=== PATIENT | male | born 1985 | race Caucasian/White ===

== ENCOUNTER 2017-11-14 09:22 | Emergency (ER) | payer OTHER ==
[~2017-11-14] VITALS: Ht 170.2 cm; Wt 90.7 kg
[2017-11-14 09:40] VITALS: BP 132/85
[2017-11-14] MEDS ORDERED: LIDOCAINE WITH 8.4% SOD BICARB 3 ML DISP.SYRIN. INJ ONE (09:45)
--- NOTE | 2017-11-14 10:14 | RAD ---
Right hand, 3 views, 11/14/2017: HISTORY: Laceration No acute fracture or dislocation is identified. No radiopaque foreign body is identified in the soft tissues. IMPRESSION: No significant abnormality is detected. Electronically signed by: Jhony Quesada MD (11/14/2017 10:10 AM) [facility]
--- NOTE | 2017-11-14 10:48 | PHYS DOC ---
Past Medical History Past Medical History: Other Additional Past Medical Histor: Crohn's Past Surgical History: Other Additional Past Surgical Histo: left hip Alcohol Use: None Drug Use: None Adult General Chief Complaint Chief Complaint: LACERATION/AVULSION HPI HPI Patient is a 32-year-old right-handed male who presents to the ED today with right hand laceration, patient states he was moving a TV which broke cutting. Review of Systems Review of Systems Constitutional: Denies fever or chills [] Musculoskeletal: Denies back pain or joint pain [] Integument: Reports right hand laceration Neurologic: Denies headache, focal weakness or sensory changes [] All other systems were reviewed and found to be within normal limits, except as documented in this note. Current Medications Current Medications Current Medications Medications (Trade) Dose Ordered Sig/Alexandra Start Time Stop Time Status Last Admin Dose Admin Lidocaine/Sodium Bicarbonate (Buffered Lidocaine 1%) 3 ml 1X ONCE 11/14/17 09:45 11/14/17 09:46 DC 11/14/17 09:52 3 ML Allergies Allergies Allergies Coded Allergies Type Severity Reaction Last Updated Verified ibuprofen Adverse Reaction Mild Can not take d/t crohn's 11/14/17 Yes Physical Exam Physical Exam Constitutional: Well developed, well nourished, no acute distress, non-toxic appearance. [] Skin: right ash thenar with a laceration approximately 1 cm long. There is no obvious tendon involvement. A shunt able to flex and extend all his fingers to the right hand. Adequate radial medial and ulnar sensation to the right hand. +2 right radial pulse. Cap refill less than 2 seconds the right fingers. Back: No tenderness, no CVA tenderness. [] Extremities: No tenderness, no cyanosis, no clubbing, ROM intact, no edema. [] Neurologic: Alert and oriented X 3, normal motor function, normal sensory function, no focal deficits noted. [] Psychologic: Affect normal, judgement normal, mood normal. [] Current Patient Data Vital Signs Vital Signs Date Time Temp Pulse Resp B/P (MAP) Pulse Ox O2 Delivery O2 Flow Rate FiO2 11/14/17 09:40 97.7 89 20 132/85 (101) 98 Room Air 97.7 EKG EKG [] Radiology/Procedures Radiology/Procedures Laceration/Wound Repair Wound Location: Right palm laceration Wound's Depth, Shape: Horizontal Wound Length (cm): Approximately 1 cm Wound Explored: clean Irrigated w/ Saline (ccs): 30 Betadine Prep?: Yes Anesthesia: One percent of Buffered lidocaine Volume Anesthetic (ccs): Approximately 2 mL Wound Repaired With: Ethilon Suture Size/Type: 5.0/3 to sutures Progress : Wound was covered with nonstick dressing. Course & Med Decision Making Course & Med Decision Making Pertinent Labs and Imaging studies reviewed. (See chart for details) Patient is a laceration to the right thumb that was repaired by me as noted in procedures. Right hand x-rays were negative for any acute findings. Tetanus up- to-date. Wound care instructions and return precautions provided. Staff Physician Addendum: I was working in the ER during the course of this patient's visit. I was available for consultation as needed, but I was not directly involved in the care of this patient. Dragon Disclaimer Dragon Disclaimer This electronic medical record was generated, in whole or in part, using a voice recognition dictation system. Departure Departure Impression: Primary Impression: Laceration of hand Disposition: 01 HOME, SELF-CARE Condition: STABLE Referrals: UNKNOWN PCP NAME (PCP) Follow-up with the ED or your own doctor in 7-10 days for suture removal Patient Instructions: Laceration Care, Adult Additional Instructions: You were seen for right hand laceration that was repaired with sutures. Keep the area clean and dry. You can shower. Follow-up with the ED in 7-10 days for suture removal. Apply Neosporin to the area twice a day. Monitor the area for signs of infection including increased redness, warmth to the area, odor drainage from the area and return to the ED if they occur. Problem Qualifiers Primary Impression: Laceration of hand Encounter type: initial encounter Foreign body presence: without foreign body Laterality: right Qualified Codes: S61.411A - Laceration without foreign body of right hand, initial encounter TRUMAN FORMAN APRN Nov 14, 2017 10:48 ORALIA RAMESH MD Nov 14, 2017 11:32
== END 2017-11-14 11:10 | disposition home or self-care (01) ==
LOC: ER 09:22
DX: S61.411A Laceration without foreign body of right hand, initial encounter (principal); Z88.6 Allergy status to analgesic agent; W26.8XXA Contact with other sharp object(s), not elsewhere classified, initial encounter; Y93.89 Activity, other specified; Y92.89 Other specified places as the place of occurrence of the external cause; Y99.8 Other external cause status
CPT/HCPCS: 12001; 73130; 99284